=== PATIENT | male | born 1955 | race Caucasian/White ===

== ENCOUNTER 2019-10-19 17:45 | Emergency (ER) | payer SELFPAY ==
[2019-10-19] MEDS ORDERED: HYDROCODONE/APAP 5/325MG TABLET PO ONE (18:12)
--- NOTE | 2019-10-19 18:18 | Emergency Department Record ---
History of Present Illness - General Chief complaint: Pain Stated complaint: PAIN RT/LT ROTATOR CUFF/MAGNESIUM LEVEL LOW Time Seen by Provider: 10/19/19 18:03 Source: Patient Mode of Arrival: Ambulatory Limitations: No limitations - History of Present Illness Initial comments: Pt to ED with for complaint of pain to right shoulder after doing work in the garage at home. Pt relates hx of shoulder issues with surgery in past and scheduled "shoulder replacement" in a few weeks...unsure of date. Pt taking Tramadol at home without relief. Denies recent trauma, injury, fall. -: Unknown Location: Right, Shoulder - Related Data Home Medications Medication Instructions Recorded Confirmed Last Taken Tramadol HCl 50 mg PO Q6H 10/19/19 10/19/19 10/19/19 Allergies Allergy/AdvReac Type Severity Reaction Status Date / Time No Known Drug Allergies Allergy Verified 10/19/19 18:10 Travel Screening - Travel/Exposure Within Last 30 Days Have you traveled within the last 30 days?: No Review of Systems Constitutional: Denies: Chills, Fever Respiratory: Denies: Cough Cardiovascular: Denies: Chest pain Endocrine: Denies: Fatigue Musculoskeletal: Reports: As per HPI Physical Exam - General General Appearance: Alert, Oriented x3, Mild distress, Anxious Limitations: Other (Pt pulling monitors and trowing things on floor. loud in ED "he needs to be seen now", pt states "I need pain meds now". Using abusive language with staff. Threatening/intimidating to staff ) - Head Head exam: Atraumatic - Eye Eye exam: Normal appearance, PERRL - ENT ENT exam: Mucous membranes moist - Neck Neck exam: Normal inspection - Respiratory Respiratory exam: Normal lung sounds bilaterally. negative: Respiratory distress, Rhonchi - Cardiovascular Cardiovascular Exam: Regular rate, Normal rhythm Peripheral Pulses: 2+: Radial (R), Radial (L) - GI/Abdominal GI/Abdominal exam: Soft. negative: Tenderness - Extremities Extremities exam: Other (Rigth shoulder without deformity, pt moving it without limits to pull self up on bedraila nd to removed BP cuff, etc. Full exam limit by uncooperative behavior. ) - Neurological Neurological exam: Alert, Normal gait - Psychiatric Psychiatric exam: Agitated, Anxious - Skin Skin exam: Normal color Course Vital Signs 10/19/19 18:05 Temperature 97.6 F Respiratory 22 Rate - Reevaluation(s) Reevaluation #1: 10/19/19 18:18 Pt is agitated and out of control on arrival. Calms some with set boundaries. Exam limited. Wants narcotic pain meds. admits to marijuana today but denies other street drugs. Offered one [place] here and told he would need to treat his chronic pain thru his primary physician tomorrow. He agrees with this plan. 10/19/19 18:21 Disposition Disposition: Discharge Clinical Impression: Shoulder pain, right Disposition: Home, Self-Care Condition: (2) Stable Instructions: Shoulder Pain (ED) Additional Instructions: See your doctor in the AM for continued pain control. Forms: Patient Portal Access Time of Disposition: 18:20 Quality - Quality Measures Quality Measures: N/A - Blood Pressure Screening Does Patient Have Any of the Following: No Blood Pressure Classification: Normal BP Reading Systolic Measurement: 106 Diastolic Measurement: 66 Screening for High Blood Pressure: < Normal BP, F/U Not Required > [G8783]
== END 2019-10-19 18:36 | disposition home or self-care (01) ==
LOC: ER 17:45
DX: G89.29 Other chronic pain (principal); M25.511 Pain in right shoulder
CPT/HCPCS: 99283